=== PATIENT | female | born 1945 | race Asian ===

== ENCOUNTER 2018-06-27 16:02 | Emergency (ER) | payer MEDICARE, OTHER ==
[~2018-06-27] VITALS: Ht 160 cm; Wt 65.8 kg
[~2018-06-27 16:02] MED LIST: ACTOS15 MG PO; GLUCOVANCE 5-51 EACH PO; LISINOPRIL10 MG PO
[2018-06-27] MEDS ORDERED: TETANUS/DIPHTHERIA TOX ADULT 0.5 ML SYR IM ONE (16:30)
--- NOTE | 2018-06-27 16:44 | NUR ---
pt refused x-ray. provider notified
[2018-06-27] MEDS ORDERED: BUPIVACAINE HCL 0.25% 10ML MPF VIAL INJ ONE (16:45)
[2018-06-27 17:35] VITALS: BP 180/78
== END 2018-06-27 18:15 | disposition home or self-care (01) ==
LOC: FSED 16:02
DX: S91.202A Unspecified open wound of left great toe with damage to nail, initial encounter (principal); W20.8XXA Other cause of strike by thrown, projected or falling object, initial encounter; Y92.007 Garden or yard of unspecified non-institutional (private) residence as the place of occurrence of the external cause
CPT/HCPCS: 90714; 99283